=== PATIENT | female | born 1985 | race Caucasian/White ===

== ENCOUNTER 2017-05-08 04:51 | Inpatient (IN) | payer MEDICAID ==
[~2017-05-08] VITALS: Ht 163.8 cm; Wt 69.5 kg
[2017-05-08 05:17] VITALS: BP 136/85; PULSE 59; RESP 18
[2017-05-08] MEDS ORDERED: PRENAT PO (05:30)
[2017-05-08] MEDS ORDERED: FERR134T PO (05:31)
[2017-05-08] MEDS ORDERED: OXYTOCIN 30 UNITS/LR 500 ML IV SCH ×2 (06:30)
[2017-05-08] MEDS ORDERED: LIDOCAINE 1% (MPF) 30 ML INJ INJ PRN (06:30)
[2017-05-08] MEDS ORDERED: CARBOPROST 250 MCG INJ IM PRN ×2 (06:30→21:30)
[2017-05-08] MEDS ORDERED: METHYLERGONOVINE 0.2 MG INJ IM PRN ×2 (06:30→21:30)
[2017-05-08] MEDS ORDERED: MISOPROSTOL 200 MCG TAB PR PRN ×2 (06:30→21:30)
[2017-05-08] MEDS ORDERED: IBUPROFEN 600 MG TAB PO PRN (06:30)
[2017-05-08] MEDS ORDERED: OXYTOCIN 30 UNITS/LR 500 ML IV PRN ×2 (06:30→21:30)
[2017-05-08] MEDS ORDERED: BUTORPHANOL 2 MG INJ IV PRN (06:30)
--- NOTE | 2017-05-08 06:36 | TRIAGE ---
OB Triage Datetime Report Generated by CPN: 05/08/2017 06:36 Datetime: 05/08/2017 06:27 Time of Arrival: 05/08/2017 06:27 EGA: 39.5 Arrived By: Ambulatory Datetime: 05/08/2017 06:23 Stage of : Labor Datetime: 05/08/2017 06:20 Labor Evaluation Frequency: 2-3 Monitor Mode: External Quality: Moderate Pattern: Normal: <= 5 Contractions in 10 Minutes Resting Tone [place]: Relaxed Heart Rate FHR Baseline Rate: 130 Monitor Mode: External US FHR Baseline Changes: No Baseline Change Variability: Moderate 6-25 bpm Accelerations: 15X15 Decelerations: None Category: Category I Datetime: 05/08/2017 05:47 Labor Evaluation Frequency: 2-3 Monitor Mode: External Duration (sec)2399: 60 Quality: Moderate Pattern: Normal: <= 5 Contractions in 10 Minutes Resting Tone [place]: Relaxed Heart Rate FHR Baseline Rate: 135 Monitor Mode: External US FHR Baseline Changes: No Baseline Change Variability: Moderate 6-25 bpm Accelerations: 15X15 Decelerations: None Category: Category I Pain Assessment Pain Scale: 8 Pain Presence: Intermittent Pain Type: Contraction Pain Location: Abdomen Vaginal Exam Dilatation (cms): 4.0 Effacement (%): 80 Station: -2 Exam By: Jacki Scott Membrane Status: Intact Vaginal Bleeding: Moderate Cervix, Consistency: Soft Cervix, Position: Midposition Presentation 'A': Cephalic Datetime: 05/08/2017 05:08 Stage of : OB Triage Maternal Assessment Level of Consciousness: Fully Conscious DTR's/Clonus: DTRs 2+; No Clonus Headache: Denies Blurred Vision: No Respiratory Effort: Unlabored Nausea/Vomiting: Denies RUQ Epigastric Pain: Denies Facial Edema: None Labor Evaluation Frequency: placed Monitor Mode: External Monitor Mode: External US Comments: FHT 130 Datetime: 05/08/2017 05:00 Time of Arrival: 05/08/2017 04:48 EGA: 39.5 Arrived By: Wheelchair Arrived From: Home Chief Complaint: w/ ucs. Denies hx problems this Movement: Present Contractions: Regular Time Contractions Began: 05/08/2017 03:00 Contractions: Q3-5 Rupture of Membranes: Denies Vaginal Bleeding: Normal Show Vaginal Discharge: Present Patient Complaints: Contractions Time Provider Notified: 05/08/2017 05:50 Provider Notified: Dr Sosa Initial Plan: SILVIA ORTA
[2017-05-08] MEDS: LACTATED RINGER'S 1,000 ML IV SCH ×3 (06:43→17:25)
[2017-05-08] MEDS ORDERED: LACTATED RINGER'S 1,000 ML IV PRN (07:00)
[2017-05-08 07:16] LABS: ADD SCAN DIFF NO
[2017-05-08 07:20] LABS: BASOPHILS % 0.3 % (0.0-2.0); EOSINOPHILS # 0.1 10^3/ul (0.0-0.5); EOSINOPHILS % 0.6 % (0.0-7.0); HEMATOCRIT 36.6 % (37.0-47.0); HEMOGLOBIN 13.2 g/dl (12.0-16.0); LYMPHOCYTES # 2.2 10^3/ul (0.8-2.9); LYMPHOCYTES % 22.9 % (15.0-51.0); MEAN CORPUSCULAR HEMOGLOBIN 33.3 pg (29.0-33.0); MEAN CORPUSCULAR HGB CONC 36.1 g/dl (32.0-37.0); MEAN CORPUSCULAR VOLUME 92.4 fl (82.0-101.0); MEAN PLATELET VOLUME 11.7 fl (7.4-10.4); MONOCYTE # 0.7 10^3/ul (0.3-0.9); MONOCYTES % 7.4 % (0.0-11.0); NEUTROPHIL # 6.6 10^3/ul (1.6-7.5); NEUTROPHILS % 67.8 % (39.0-77.0); PLATELET COUNT 214 10^3/UL (140-415); RED BLOOD COUNT 3.96 10^6/ul (4.20-5.40); WHITE BLOOD COUNT 9.8 10^3/ul (4.8-10.8)
[2017-05-08 07:22] LABS: ADD UMIC YES; UR BILIRUBIN (Dip) NEGATIVE (NEGATIVE); UR BLOOD (Dip) 3+ (NEGATIVE); UR CLARITY CLEAR (CLEAR); UR COLOR LT. YELLOW (YELLOW); UR GLUCOSE (Dip) NEGATIVE (NEGATIVE); UR KETONES (Dip) NEGATIVE (NEGATIVE); UR LEUKOCYTE ESTERASE (Dip) NEGATIVE (NEGATIVE); UR NITRITE (Dip) NEGATIVE (NEGATIVE); UR TOTAL PROTEIN (Dip) NEGATIVE (NEGATIVE); UR UROBILINOGEN (Dip) 0.2 E.U./dL (0.1-1.0)
--- NOTE | 2017-05-08 07:34 | RADRPT ---
PROCEDURE: US OB. CLINICAL INDICATION: Size and dates TECHNIQUE: Multiple sonographic images of the pelvis were obtained. Transabdominal imaging only w as performed. The images were reviewed on a PACS workstation. COMPARISON: No prior studies are available for comparison. FINDINGS: There is a single live intrauterine gestation. Cardiac activity is present with 126 beats per minut e. position is cephalic. Measurements were made in order to determine age. The results are as follows: BPD = 8.48 cm HC = 30.20 cm AC = 32.86 cm FL = 6.92 cm. Estimated gestational age of approximately 35 weeks 0 days. The estimated date of delivery is 06/12/2017. The EFW = 2771 g, 3.9 %ile. The placenta is anterior. There is no evidence for an abruption or placenta previa. There are no adnexal masses. IMPRESSION: 1. Single live intrauterine gestation of approximately 35 weeks 0 days, by ultrasound criteria. 2. The estimated date of delivery is 06/12/2017. 3. The estimated weight is 2771 g, 3.9 %ile. RPTAT: HH .Nessa Thibodeaux MD, Date Time Electronically viewed and signed by .Nessa Thibodeaux MD, on 05/08/2017 07:34 .G/
[2017-05-08 07:38] LABS: INR 0.97; PROTIME 12.9 Sec (12.2-14.2)
[2017-05-08 07:39] LABS: PARTIAL THROMBOPLASTIN TIME 26.7 Sec (25.0-35.0)
[2017-05-08 07:45] LABS: ALBUMIN 4.1 g/dl (3.3-4.9); ALBUMIN/GLOBULIN RATIO 1.51; BILIRUBIN,INDIRECT 0.2 mg/dl (0-1.1); BILIRUBIN,TOTAL 0.2 mg/dl (0.2-1.3); CALCIUM 9.6 mg/dl (8.4-10.2); CREATININE 0.5 mg/dl (0.44-1.00); POTASSIUM 3.9 mmol/L (3.5-5.1); TOTAL PROTEIN 6.8 g/dl (6.1-8.1); URIC ACID 5.1 mg/dl (3.1-7.9)
[2017-05-08] MEDS ORDERED: FENTAnyl 2MCG/ML-ROPIV 0.2% 100 ML ONE (08:27)
[2017-05-08] MEDS ORDERED: NALOXONE (0.4 MG/ML) INJ IV PRN (12:30)
[2017-05-08] MEDS ORDERED: FENTAnyl 2MCG/ML-ROPIV 0.2% 100 ML BAG EPI SCH (12:30)
[2017-05-08] MEDS ORDERED: MINERAL OIL LIGHT 10 ML VIAL TOP ONE (19:00)
[2017-05-08] MEDS ORDERED: ACETAMINOPHEN/CODEINE #3 TAB PO PRN (19:30)
[2017-05-08] MEDS ORDERED: LACTATED RINGER'S 1,000 ML IV* SCH (21:09)
[2017-05-08 21:30] VITALS: BP 93/81; PULSE 69; RESP 20
[2017-05-08] MEDS ORDERED: DIPHENHYDRAMINE 25 MG CAP PO PRN (21:30)
[2017-05-08] MEDS ORDERED: BENZOCAINE 20% 56 ML SPRAY TOP PRN (21:30)
[2017-05-08] MEDS ORDERED: ONDANSETRON 4 MG INJ IV PRN (21:30)
[2017-05-08] MEDS ORDERED: LANOLIN 7 GM TUBE TOP PRN (21:30)
[2017-05-08] MEDS ORDERED: DIBUCAINE 1% 30 GM OINT PR PRN (21:30)
[2017-05-08] MEDS ORDERED: WITCH HAZEL/GLYCERIN PAD PR PRN (21:30)
--- NOTE | 2017-05-08 22:08 | LDN ---
Date/Time of Note Date/Time of Note DATE: 05/08/17 TIME: 22:05 Delivery Summary Patient was in active labor and in second stage of labor. had been managed during labor by Dr. Lopez. She was assigned to me when she was complete and pushing to attend the delivery due to nonavailability of attending physician for the shift engineer I attended to delivery room. Patient was complete complete +3 activity pushing. Weeks of Gestation 39+ weeks Placenta Delivered: Spontaneously Meconium: none Episiotomy: No Perineal laceration: 2 Laceration repair: Second-degree perineal and vaginal tear occurred at the time of delivery this was repaired using 2 -o and 3-0 chromic. Anesthesia type: Epidural Estimated blood loss: 400 Sponge & Needle done & correct: No All needle counts correct: No Any foreign bodies felt in the: No Problems: Infant Delivery Information Sex Infant Sex: female Apgars 1 Minute: 8 5 Minute: 9 Suctioning Nose & mouth suctioned at lory: Yes Delee suction performed: Yes Umbilical Cord Umbilical cord with: 3 Vessels Cord presentations: no nuchal cord Cord Blood was obtained: Yes MARQUEZ DELA CRUZ MD May 08, 2017 22:08
[2017-05-08] MEDS: IBUPROFEN 600 MG TAB PO SCH (23:33)
[2017-05-09 00:15] VITALS: BP 100/82; PULSE 72; RESP 18
[2017-05-09 04:30] VITALS: BP 115/68; PULSE 68; RESP 18
[2017-05-09] MEDS: IBUPROFEN 600 MG TAB PO SCH ×4 (05:47→23:28)
[2017-05-09 07:18] LABS: ADD SCAN DIFF NO
[2017-05-09 07:26] LABS: BASOPHILS % 0.2 % (0.0-2.0); EOSINOPHILS # 0.1 10^3/ul (0.0-0.5); EOSINOPHILS % 0.4 % (0.0-7.0); HEMATOCRIT 28.4 % (37.0-47.0); HEMOGLOBIN 9.7 g/dl (12.0-16.0); LYMPHOCYTES # 2.4 10^3/ul (0.8-2.9); LYMPHOCYTES % 18.6 % (15.0-51.0); MEAN CORPUSCULAR HGB CONC 34.2 g/dl (32.0-37.0); MEAN CORPUSCULAR VOLUME 96.6 fl (82.0-101.0); MONOCYTE # 0.8 10^3/ul (0.3-0.9); MONOCYTES % 6.4 % (0.0-11.0); NEUTROPHIL # 9.3 10^3/ul (1.6-7.5); NEUTROPHILS % 73.6 % (39.0-77.0); PLATELET COUNT 174 10^3/UL (140-415); RED BLOOD COUNT 2.94 10^6/ul (4.20-5.40); RED CELL DISTRIBUTION WIDTH 12.5 % (11.5-14.5); WHITE BLOOD COUNT 12.6 10^3/ul (4.8-10.8)
[2017-05-09 08:49] VITALS: BP 124/66; PULSE 74; RESP 20
[2017-05-09] MEDS: SENNA/DOCUSATE NA (8.6MG/50MG) TAB PO SCH ×2 (09:38→22:04)
[2017-05-09 16:00] VITALS: BP 111/66; PULSE 66; RESP 18
--- NOTE | 2017-05-09 16:40 | HP ---
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 Estimated Due Date: May 10, 2017 : 1 Para: 0 Care: Good Care Ultrasounds: Normal mid trimester US Obstetrical Complications: None Medical Complications: None Past Family/Social History * Past Medical, Surgical, Family and Obstetric Histories reviewed from chart. Rubella: immune RPR/VDRL: Negative GBS Status: Negative OB Admission Exam Vital Signs Vital Signs Vital Signs Date Time Temp Pulse Resp B/P Pulse Ox O2 Delivery O2 Flow Rate FiO2 05/09/17 08:49 97.9 74 20 124/66 Room Air Physical Exam HEENT: WNL Lungs: Clear, Equal Extremities: Normal Reflexes: Normal Cervical Dilatation: 4cm Effacement: Other (85) Station: -1 Heart Rate: 130's Accelerations: Accelerations Present Varibility: Moderate Contractions on Admission: < 5 Minutes Apart Intensity: Moderate Last 72 hours Lab Results CBC & BMP 05/08/17 06:35 05/09/17 06:40 Liver Function Test 05/08/17 06:35 Alanine Aminotransferase (ALT/SGPT) 23 Albumin 4.1 Alkaline Phosphatase 153 H Aspartate Amino Transf (AST/SGOT) 20 Direct Bilirubin 0.00 Total Protein 6.8 OB Assessment/Plan Reason for admission: active labor BRANNON SALAZAR MD May 09, 2017 16:40
[2017-05-09 20:00] VITALS: BP 116/64; PULSE 74; RESP 20
[2017-05-10 04:45] VITALS: BP 122/69; PULSE 78; RESP 20
[2017-05-10] MEDS: IBUPROFEN 600 MG TAB PO SCH ×2 (05:37→12:05)
[2017-05-10 08:40] VITALS: BP 110/63; PULSE 64; RESP 18
[2017-05-10] MEDS: SENNA/DOCUSATE NA (8.6MG/50MG) TAB PO SCH (09:13)
--- NOTE | 2017-05-10 12:22 | PD.PPDC ---
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
--- NOTE | 2017-05-10 12:26 | DS ---
Date/Time of Note Date/Time of Note DATE: 05/10/17 TIME: 12:23 Discharge Summary Admission/Discharge Info Admit Date/Time May 08, 2017 at 06:00 Discharge Date/Time May 10 2017 at 1220 Final Diagnosis Status day 2 post normal vaginal delivery Patient Condition: Good Procedures Normal spontaneous vaginal delivery Hx of Present Illness Intrauterine term Hospital Course Satisfactory uneventful Home Meds Reported Medications Ferrous Sulfate (Iron) 134 Mg Tablet, 134 MG PO DAILY, TAB 05/08/17 Multivit/Min/Fol Ac/Iron/Pren* ( S*) 1 Tab Tab, 1 TAB PO DAILY, TAB 05/08/17 Follow-up Plan Appointment clinic in 2 weeks for check Primary Care Provider Care Physician BRANNON Nolasco MD May 10, 2017 12:26
== END 2017-05-10 15:40 | disposition home or self-care (01) | DRG 775 ==
LOC: OBT 04:51 → L-D 04:53 → OBT 06:00 → L-D 06:00 → PP1 21:16
PROVIDERS: ADMIT Obstetrics & Gynecology; ATTEND Obstetrics & Gynecology
PROC: 10E0XZZ Delivery of Products of Conception, External Approach (ICD-10-PCS; principal; 2017-05-08)
PROC: 0KQM0ZZ Repair Perineum Muscle, Open Approach (ICD-10-PCS; 2017-05-08)
DX: O99.02 Anemia complicating childbirth (principal); O16.4 Unspecified maternal hypertension, complicating childbirth; O70.1 Second degree perineal laceration during delivery; Z3A.39 39 weeks gestation of pregnancy; Z37.0 Single live birth
CPT/HCPCS: 36415; 62319; 76815; 80053; 81001; 84560; 85025; 85610; 85730; 86592; 86900; 86901; G0463; J2590; J3010; J7120

== ENCOUNTER 2017-05-13 14:03 | Emergency (ER) | payer MEDICAID ==
[~2017-05-13] VITALS: Ht 154.9 cm; Wt 63.5 kg
[~2017-05-13 14:03] MED LIST: FERR134T PO; PRENAT PO
[2017-05-13 14:06] VITALS: Ht 154.9 cm; Wt 63.5 kg
--- NOTE | 2017-05-13 15:26 | ERA ---
ER Documentation Chief Complaint Date/Time DATE: 05/13/17 TIME: 15:24 Chief Complaint VAGINAL BLEEDING WITH MUCOUS DISCHARGE AND PAIN AFTER . LEG SWELLING HPI This is a 31-year-old female presenting 5 days status post vaginal delivery. Patient had a episiotomy that was later stitched up. Patient is having discomfort in the area of the episiotomy stating that 1 of the stitches is poking her when she is sitting down. Patient is also complaining of ankle swelling. Patient denies headache, right upper quadrant discomfort, photophobia. 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 ROS All systems reviewed and are negative except as per history of present illness. Medications Home Meds Active Scripts Cephalexin* (Keflex*) 500 Mg Capsule, 500 MG PO QID for 5 Days, CAP Prov:DEIDRA BHANDARI PA-C 05/13/17 Reported Medications Ferrous Sulfate (Iron) 134 Mg Tablet, 134 MG PO DAILY, TAB 05/08/17 Multivit/Min/Fol Ac/Iron/Pren* ( S*) 1 Tab Tab, 1 TAB PO DAILY, TAB 05/08/17 Allergies Allergies: Coded Allergies: No Known Allergy (Unverified , 05/08/17) PMhx/Soc Medical and Surgical Hx: pt denies Surgical Hx History of Surgery: No Anesthesia Reaction: No Hx Neurological Disorder: No Hx Respiratory Disorders: No Hx Cardiac Disorders: No Hx Psychiatric Problems: No Hx Alcohol Use: No Hx Substance Use: No Hx Tobacco Use: No Smoking Status: Never smoker Physical Exam Vitals Vital Signs Date Time Temp Pulse Resp B/P Pulse Ox O2 Delivery O2 Flow Rate FiO2 05/13/17 17:55 98.2 68 20 114/67 97 Room Air 05/13/17 14:06 98.5 89 18 128/98 97 Physical Exam Const: Well-appearing well-developed 31-year-old female who is 5 days status post vaginal delivery Head: Atraumatic Eyes: Normal Conjunctiva ENT: Normal External Ears, Nose and Mouth. Neck: Full range of motion..~ No meningismus. Resp: Clear to auscultation bilaterally Cardio: Regular rate and rhythm, no murmurs Abd: Soft, non tender, non distended. Normal bowel sounds Skin: No petechiae or rashes Back: No midline or flank tenderness Ext: Mild nonpitting edema of the right lower extremity starting 5 cm above the medial malleolus and traveling to the midfoot. No clonus. No tenderness, or edema. No hyperreflexia. DTRs and patella are 2+ bilaterally. Neur: Awake and alert neurovascularly intact with radial, dorsalis pedis and posterior tibial pulses 2+ bilaterally. Psych: Normal Mood and Affect Reproductive: Speculum exam is done. Episiotomy was seen and was the source of mild bleeding. No foul odor. Results 24 hrs Laboratory Tests Test 05/13/17 15:45 Bedside Urine pH (LAB) 7.0 Bedside Urine Protein (LAB) Trace Bedside Urine Glucose (UA) Negative Bedside Urine Ketones (LAB) Negative Bedside Urine Blood 2+ Bedside Urine Nitrite (LAB) Negative Bedside Urine Leukocyte Esterase (L 1+ Procedures/MDM Patient was worked up and evaluated for a chief complaint of vaginal pain possibly being caused by stitch from the episiotomy. Patient is 5 days status post vaginal . There is no hyperreflexia or clonus on examination. Eye exam including otoscope was unremarkable. Patient is also complaining of bilateral ankle swelling. Urinalysis was taken to rule out preeclampsia. Patient refuses any pain medications. Urine dip showed 1+ leukocyte esterase, 2+ hemoglobin, and trace H protein. Ultrasound was taken of bilateral lower extremities to evaluate for possible DVT due to swelling of right ankle and physical examination and swelling on history per patient. Ultrasound was read by the radiologist and given the following impression: 1. No evidence of deep vein thrombosis involving either lower extremity. I spoke to my attending regarding this case and he is agreed that the most appropriate treatment at this time is outpatient antibiotics for probable urinary tract infection. At this time I have little suspicion for preeclampsia , endometritis, or other vaginal infections or bacterial involvement. Patient will be discharged with discharge instructions and return precautions. I spoke with the patient about her current condition and management she is verbally agreed that she understands. Patient is being discharged with 5 days of Keflex for UTI. Departure Diagnosis: Primary Impression: Pain of female genitalia Condition: Stable Additional Instructions: Follow up with your PCP within the next 1-3 days for a more thorough evaluation and a possible referral to a specialist. Return the the emergency department immediately if symptoms worsen or change. If you have any questions regarding medications, ask your pharmacist or us before you leave. If any adverse reactions occur while taking your medications, discontinue the treatment and return to the emergency department immediately. Take your medications as directed, and complete the entire course of treatment. DEIDRA BHANDARI PA-C May 13, 2017 15:26
[2017-05-13 15:42] LABS: URINE BLOOD (Dip) POC 2+ (NEGATIVE)
--- NOTE | 2017-05-13 17:21 | RADRPT ---
PROCEDURE: US bilateral lower extremity veins. CLINICAL INDICATION: Bilateral leg pain and swelling. TECHNIQUE: Multiple longitudinal and transverse images of the bilateral lower extremity veins were obtained with jackson scale and color Doppler imaging. The common femoral vein, femoral vein, and popl iteal vein were evaluated. 2D grayscale measurements with compression sonography, color Doppler, and pulsed Doppler with augmentation. COMPARISON: No prior studies are available for comparison. FINDINGS: The bilateral common femoral, femoral and popliteal veins are normally compressible throughout. Col or flow demonstrates normal filling of the vessels. Normal waveforms are visualized and there is no rmal response to augmentation. IMPRESSION: 1. No evidence of deep vein thrombosis involving either lower extremity. RPTAT: QQ .Fan Amador MD, MD Date Time Electronically viewed and signed by .Fan Amador MD, on 05/13/2017 17:21 .R/
[2017-05-13] MEDS ORDERED: CEPH-443 PO (17:46)
[2017-05-13 17:55] VITALS: BP 114/67; PULSE 68; RESP 20; TEMP 98.2
== END 2017-05-13 18:01 | disposition home or self-care (01) ==
LOC: FTE 14:03
DX: R10.2 Pelvic and perineal pain (principal)
CPT/HCPCS: 81003; 93970; Z7502